=== PATIENT | female | born 1990 | race Caucasian/White ===

== ENCOUNTER 2024-01-13 08:34 | Emergency (ER) | payer OTHER ==
[~2024-01-13] VITALS: Ht 172.7 cm; Wt 99.8 kg
[2024-01-13 08:36] VITALS: BP_SYST 135; PULSE 92; RESP 16; TEMP 97.6; O2SAT 98
[2024-01-13] MEDS ORDERED: ONDANSETRON 4 MG ODT TAB ONE (08:58)
[2024-01-13] MEDS: ONDANSETRON 4 MG ODT TAB PO ONE (09:03)
[2024-01-13] MEDS: BUPRENORPHINE HCL/NALOXONE HCL 2-0.5 MG 1 EACH TAB.SUBL SL ONE (09:31)
[2024-01-13] MEDS ORDERED: BUPR1FIL3 SL (11:22)
[2024-01-13 12:25] VITALS: BP_SYST 137; PULSE 89; RESP 16; TEMP 97.6; O2SAT 97
== END 2024-01-13 12:24 | disposition home or self-care (01) ==
LOC: SED 08:34
DX: F15.23 Other stimulant dependence with withdrawal (principal); R53.1 Weakness; Z79.899 Other long term (current) drug therapy
CPT/HCPCS: 99283; Q0162